=== PATIENT | male | born 1985 | race Caucasian/White ===

== ENCOUNTER 2018-06-15 20:00 | Emergency (ER) | payer SELFPAY ==
[~2018-06-15] VITALS: Ht 188 cm; Wt 87.3 kg
[~2018-06-15 20:00] MED LIST: MOTRIN800 MG PO; NOHOMEMEDS
[2018-06-15] MEDS ORDERED: MOTRIN800 MG PO (22:24)
[2018-06-15] MEDS ORDERED: NORCO 7.5/321 TABLET PO (22:24)
[2018-06-15 22:40] VITALS: BP 131/84
== END 2018-06-15 22:40 | disposition home or self-care (01) ==
LOC: EME 20:00
DX: T15.01XA Foreign body in cornea, right eye, initial encounter (principal); Z88.0 Allergy status to penicillin
CPT/HCPCS: 99281; 99284